=== PATIENT | male | born 1975 | race Caucasian/White ===

== ENCOUNTER 2023-04-05 11:12 | Emergency (ER) | payer OTHER ==
[2023-04-05 12:14] VITALS: BP 123/82; PULSE 88; RESP 18; TEMP 99.1; BMI 20.9
[2023-04-05] MEDS ORDERED: levETIRAcetam 500 MG TABLET (FP) PO ONE ×3 (12:28→12:34)
== END 2023-04-05 16:09 | disposition home or self-care (01) ==
LOC: JER 11:12
DX: R56.9 Unspecified convulsions (principal); Z76.89 Persons encountering health services in other specified circumstances
CPT/HCPCS: 99283-25